=== PATIENT | female | born 1975 | race Hispanic/Latino ===

== ENCOUNTER → 2019-07-26 | Outpatient (CLI) | payer OTHER ==
--- NOTE | 2019-07-29 10:42 | Diagnostic Imaging Report ---
#[id number] - MGSCRBIL #BILATERAL DIGITAL SCREENING MAMMOGRAM WITH CAD: 07/26/2019 CLINICAL: Routine screening. Comparison is made to exams dated: 12/26/2014 mammogram, 12/05/2014 mammogram and 12/30/2012 mammogram - [facility]. Current study contains 6 films. The tissue of both breasts is heterogeneously dense. This may lower the sensitivity of mammography. Current study was also evaluated with a Computer Aided Detection (CAD) system. Benign appearing calcifications are noted bilaterally. No significant masses, calcifications, or other findings are seen in either breast. IMPRESSION: BENIGN There is no mammographic evidence of malignancy. A 1 year screening mammogram is recommended. The patient will be notified by letter of the results. VICKY LOBATO M.D. ct/penrad:07/28/2019 13:23:07 [employer] Maintainer: Abimbola PURCELL(Rosina)(M), [facility] letter sent: Normal Exam Mammogram BI-RADS: 2 Benign
== END ==
LOC: MAMMO 15:12
PROVIDERS: ATTEND Family Medicine
DX: Z12.31 Encounter for screening mammogram for malignant neoplasm of breast (principal)
CPT/HCPCS: 77067

== ENCOUNTER → 2020-09-13 | Outpatient (CLI) | payer OTHER | LOC: MAMMO 15:59 | PROVIDERS: ATTEND Family Medicine | DX: Z12.31 Encounter for screening mammogram for malignant neoplasm of breast (principal) | CPT/HCPCS: 77067 ==

== ENCOUNTER 2024-11-03 12:42 | Emergency (ER) | payer OTHER ==
[~2024-11-03] VITALS: Ht 167.6 cm; Wt 74.4 kg
[2024-11-03 13:05] VITALS: PULSE 88; RESP 16; TEMP 98
[2024-11-03 13:14] LABS: BASOPHILS % 0.2 % (0.0-1.0); EOSINOPHILS # (AUTO) 0.3 (0.0-0.4); EOSINOPHILS % 3.2 % (0.0-6.0); HEMATOCRIT 39.9 % (34.2-44.1); HEMOGLOBIN 14.1 g/dL (12.0-16.0); LYMPHOCYTES # (AUTO) 2.8 (1.0-3.2); LYMPHOCYTES % 26.7 % (18.0-39.1); MEAN CORPUSCULAR HEMOGLOBIN 29.3 pg (28-32); MEAN CORPUSCULAR HGB CONC 35.3 g/dL (31-35); MEAN CORPUSCULAR VOLUME 82.8 fL (81-99); MONOCYTES % 9.3 % (4.4-11.3); NEUTROPHILS # (AUTO) 6.3 (2.1-6.9); NEUTROPHILS % 60.4 % (38.7-80.0); PLATELET COUNT 298 x10e3/uL (140-360); RED BLOOD COUNT 4.82 x10e6/uL (3.6-5.1); RED CELL DISTRIBUTION WIDTH 12.4 % (11.7-14.4); WHITE BLOOD COUNT 10.46 x10e3/uL (4.8-10.8)
[2024-11-03] MEDS: SODIUM CHLORIDE 0.9% 1000ML 1,000 ML IV STA (13:32)
[2024-11-03 13:46] LABS: ALBUMIN 4.3 g/dL (3.5-5.0); ANION GAP 18.7 mmol/L (8-16); BILIRUBIN,TOTAL 0.3 mg/dL (0.2-1.2); CALCIUM 10.1 mg/dL (8.4-10.2); CREATININE, SERUM 1.64 mg/dL (0.57-1.11); POTASSIUM 3.7 mmol/L (3.5-5.1); TOTAL PROTEIN 8.4 g/dL (6.5-8.1)
[2024-11-03 14:06] LABS: INR 0.89; PROTHROMBIN TIME 12.6 seconds (11.9-14.5)
[2024-11-03 14:08] LABS: PARTIAL THROMBOPLASTIN TIME 22.5 seconds (23.8-35.5)
[2024-11-03] MEDS ORDERED: SODIUM CHLORIDE 0.9% 0 ML ONE (14:11)
[2024-11-03] MEDS ORDERED: IOPAMIDOL 370 MG/ML 100 ML INFUS..BTL INJ ONE (14:11)
[2024-11-03 16:34] VITALS: BP 100/68; PULSE 77; RESP 16; TEMP 98; O2SAT 97
== END 2024-11-03 16:36 | disposition home or self-care (01) ==
LOC: ER 12:58
DX: R42 Dizziness and giddiness (principal); R55 Syncope and collapse; N28.9 Disorder of kidney and ureter, unspecified; I10 Essential (primary) hypertension; R53.81 Other malaise
CPT/HCPCS: 36415; 70450; 70496; 70498; 71045; 80053; 84484; 85025; 85379; 85610; 85730; 93005; 99284; J7030; Q9967; J7050